=== PATIENT | female | born 1990 | race African-American/Black ===

== ENCOUNTER 2022-12-26 05:55 | Emergency (ER) | payer OTHER ==
[~2022-12-26] VITALS: Ht 167.6 cm; Wt 95.8 kg
[2022-12-26 08:09] LABS: APPEARANCE, URINE CLEAR (CLEAR); BACTERIA, URINE AUTO 1+ (NEGATIVE); BILIRUBIN, URINE AUTO NEGATIVE (NEGATIVE); BLOOD, URINE BLOOD 3+ (NEGATIVE); COLOR, URINE YELLOW (YELLOW); GLUCOSE, URINE (UA) AUTO NEGATIVE (NEGATIVE); KETONE, URINE AUTO NEGATIVE (NEGATIVE); LEUKOCYTE ESTERASE, URINE AUTO NEGATIVE (NEGATIVE); NITRITE, URINE AUTO NEGATIVE (NEGATIVE); PROTEIN, URINE AUTO NEGATIVE (NEGATIVE); RBC, URINE AUTO 2 /HPF (0-3); SPECIFIC GRAVITY URINE AUTO 1.008 (1.002-1.035); SQUAMOUS EPITHELIAL CELL UR AU 2 /HPF (0-6); UROBILINOGEN, URINE AUTO 0.2 mg/dL (0.0-2.0); WBC, URINE AUTO 0 /HPF (0-3)
[2022-12-26 08:13] LABS: BASO # 0.1 10^3/uL (0.0-0.2); BASO % 0.5 % (0.0-1.0); EOS # 0.2 10^3/uL (0.0-0.5); EOS % 2.1 % (0.0-3.0); HEMATOCRIT 33.5 % (36.0-47.0); HEMOGLOBIN 10.7 g/dl (12.0-15.5); LYMPH # 1.9 10^3/uL (1.5-5.0); LYMPH % 18.4 % (24.0-44.0); MEAN CORPUSCULAR HEMOGLOBIN 28.3 pg (27.0-33.0); MEAN CORPUSCULAR HGB CONC 31.9 g/dl (32.0-36.5); MEAN CORPUSCULAR VOLUME 88.6 fl (80.0-96.0); MONO # 0.8 10^3/uL (0.0-0.8); MONO % 8.2 % (2.0-8.0); NEUTROPHILS # 7.1 10^3/uL (1.5-8.5); NEUTROPHILS % 69.7 % (36.0-66.0); PLATELET COUNT, AUTOMATED 325 10^3/uL (150-450); RED BLOOD COUNT 3.78 10^6/uL (4.00-5.40); WHITE BLOOD COUNT 10.2 10^3/uL (4.0-10.0)
[2022-12-26 08:32] LABS: BLOOD UREA NITROGEN 8 MG/DL (9-23); CALCIUM LEVEL 9.4 MG/DL (8.5-10.1); CARBON DIOXIDE LEVEL 26 MMOL/L (20-31); CHLORIDE LEVEL 102 MMOL/L (98-107); CREATININE FOR GFR 0.84 MG/DL (0.55-1.30); GLOMERULAR FILTRATION RATE > 60.0 (>60); GLUCOSE, FASTING 97 MG/DL (60-100); POTASSIUM SERUM 4.7 MMOL/L (3.5-5.1); SODIUM LEVEL 136 MMOL/L (136-145)
[2022-12-26 08:46] LABS: HCG, SERUM QUANTITATIVE 88294.5 MIU/ML (<4.2)
[2022-12-26] MEDS ORDERED: PREN1TAB11 PO (10:01)
[2022-12-26] MEDS ORDERED: ONDA4TAB6 PO (10:01)
[2022-12-26] MEDS ORDERED: NS 1,000 ML IV ONE (10:35)
[2022-12-26 12:18] VITALS: BP 127/65; TEMP 98.8; O2SAT 100
== END 2022-12-26 12:26 | disposition home or self-care (01) ==
LOC: M ED 05:55
DX: O20.8 Other hemorrhage in early pregnancy (principal); O34.81 Maternal care for other abnormalities of pelvic organs, first trimester; Z3A.11 11 weeks gestation of pregnancy

== ENCOUNTER → 2023-01-10 | Outpatient (CLI) | payer OTHER ==
[~2023-01-10] MED LIST: ONDA4TAB6 PO; PREN1TAB11 PO
== END ==
LOC: M RAD 09:50
PROVIDERS: ATTEND Obstetrics & Gynecology
DX: O09.211 Supervision of pregnancy with history of pre-term labor, first trimester (principal); Z3A.12 12 weeks gestation of pregnancy; R10.9 Unspecified abdominal pain

== ENCOUNTER 2023-01-25 07:19 | Day surgery (SDC) | payer OTHER ==
[~2023-01-25] VITALS: Ht 167.6 cm; Wt 98.8 kg
[~2023-01-25 07:19] MED LIST changes: +ACETAMINOPHEN *IV* 1,000 MG in IV 1 EA IV ONE; +ASPI-226 PO; +FERR325T81 PO; +FOLI400T13 PO; +PNV,1TAB3 PO; +PROG1CAP9 PO; +VITA100093 PO; +ceFAZolin SOD 2 GM in IV 1 EA IV ONE
[2023-01-25] MEDS ORDERED: LR 1,000 ML IV SCH ×2 (07:45→09:10)
[2023-01-25 07:52] LABS: HEMATOCRIT 29.2 % (36.0-47.0); HEMOGLOBIN 9.6 g/dl (12.0-15.5); MEAN CORPUSCULAR HEMOGLOBIN 28.8 pg (27.0-33.0); MEAN CORPUSCULAR HGB CONC 32.9 g/dl (32.0-36.5); MEAN CORPUSCULAR VOLUME 87.7 fl (80.0-96.0); PLATELET COUNT, AUTOMATED 269 10^3/uL (150-450); RED BLOOD COUNT 3.33 10^6/uL (4.00-5.40); WHITE BLOOD COUNT 10.3 10^3/uL (4.0-10.0)
[2023-01-25 08:17] LABS: ALBUMIN 2.9 G/DL (3.2-5.2); ALKALINE PHOSPHATASE 83 U/L (46-116); ALT/SGPT 10 U/L (7.0-40); AST/SGOT 8 U/L (<34); BILIRUBIN,TOTAL 0.3 MG/DL (0.3-1.2); BLOOD UREA NITROGEN 9 MG/DL (9-23); CALCIUM LEVEL 8.8 MG/DL (8.5-10.1); CARBON DIOXIDE LEVEL 25 MMOL/L (20-31); CHLORIDE LEVEL 106 MMOL/L (98-107); CREATININE FOR GFR 0.85 MG/DL (0.55-1.30); GLOMERULAR FILTRATION RATE > 60.0 (>60); GLUCOSE, FASTING 88 MG/DL (60-100); POTASSIUM SERUM 3.9 MMOL/L (3.5-5.1); SODIUM LEVEL 137 MMOL/L (136-145); TOTAL PROTEIN 6.3 G/DL (5.7-8.2)
[2023-01-25] MEDS ORDERED: ONDANSETRON 4MG 2ML VIAL As Ordered ONE (08:34)
[2023-01-25] MEDS ORDERED: ACETAMINOPHEN 1000MG 100ML IV BAG As Ordered ONE (08:34)
[2023-01-25] MEDS ORDERED: fentaNYL 100 MCG/2 ML INJECTION IV PRN (09:10)
[2023-01-25] MEDS ORDERED: ONDANSETRON 4MG 2ML VIAL IV PRN (09:10)
[2023-01-25] MEDS ORDERED: oxyCODONE 5MG TAB PO PRN (09:10)
[2023-01-25 10:03] VITALS: BP 132/76; TEMP 98.2; O2SAT 100
== END 2023-01-25 09:57 | disposition home or self-care (01) ==
LOC: M SDC 07:19
PROVIDERS: ATTEND Obstetrics & Gynecology
DX: O34.32 Maternal care for cervical incompetence, second trimester (principal); Z3A.21 21 weeks gestation of pregnancy
CPT/HCPCS: 36415; 59320; 80053; 85027; 86850; 86900; 86901; J0131; J0690; J2405

== ENCOUNTER → 2023-03-22 | Outpatient (CLI) | payer OTHER ==
[~2023-03-22] MED LIST changes: -ACETAMINOPHEN *IV* 1,000 MG in IV 1 EA IV ONE; -ceFAZolin SOD 2 GM in IV 1 EA IV ONE
== END ==
LOC: M WHC 11:32
PROVIDERS: ATTEND Obstetrics & Gynecology
DX: O34.12 Maternal care for benign tumor of corpus uteri, second trimester (principal); D25.9 Leiomyoma of uterus, unspecified; Z3A.23 23 weeks gestation of pregnancy; O34.32 Maternal care for cervical incompetence, second trimester; O09.292 Supervision of pregnancy with other poor reproductive or obstetric history, second trimester

== ENCOUNTER 2023-06-21 10:30 | Outpatient (CLI) | payer OTHER ==
[~2023-06-21] VITALS: Ht 167.6 cm; Wt 111.3 kg
[2023-06-21] MEDS ORDERED: PRENTAB9 PO (10:42)
[2023-06-21 10:49] VITALS: BP 136/66
[2023-06-21] MEDS ORDERED: HOME MED LIST COMPLETE! XX SCH (11:05)
[2023-06-21 13:07] VITALS: BP 116/61
[2023-06-21 13:50] VITALS: BP 115/56
== END 2023-06-21 14:10 | disposition home or self-care (01) ==
LOC: M LDO 10:30
PROVIDERS: ATTEND Advanced Practice Midwife
DX: O36.8330 Maternal care for abnormalities of the fetal heart rate or rhythm, third trimester, not applicable or unspecified (principal); Z3A.36 36 weeks gestation of pregnancy; O09.813 Supervision of pregnancy resulting from assisted reproductive technology, third trimester; Z79.82 Long term (current) use of aspirin; Z79.899 Other long term (current) drug therapy
CPT/HCPCS: 59025; 76815; 76819; 76820; G0463

== ENCOUNTER 2023-06-29 06:47 | Inpatient (IN) | payer OTHER ==
[~2023-06-29] VITALS: Ht 167.6 cm; Wt 111.9 kg
[2023-06-29] VITALS (36 sets, daily range): BP systolic 95–150; BP diastolic 51–84; O2SAT 98
[~2023-06-29 06:47] MED LIST changes: +PRENTAB9 PO
[2023-06-29] MEDS ORDERED: TUMS500C PO (07:07)
[2023-06-29] MEDS ORDERED: TRANEXAMIC ACID INJection 1,000 MG in NS 100 ML IV PRN (08:00)
[2023-06-29] MEDS ORDERED: METHYLERGONOVINE MALEATE 0.2MG/ML 1ML VIAL IM PRN (08:00)
[2023-06-29] MEDS ORDERED: OXYTOCIN INJ 10UNITS/ML 1ML VIAL IM PRN (08:00)
[2023-06-29] MEDS ORDERED: CARBOPROST TROMETHAMINE 250 MCG/ML AMP IM PRN (08:00)
[2023-06-29] MEDS ORDERED: LIDOCAINE 1% MDV 20ML VIAL INFIL PRN (08:00)
[2023-06-29] MEDS ORDERED: OXYTOCIN DRIP 30 UNITS in IV 1 EA IV PRN ×3 (08:00)
[2023-06-29] MEDS: LACTATED RINGER'S 1000 ML IV STA (08:07)
[2023-06-29] MEDS: AMPICILLIN SOD 2 GM in D5W MINI-BAG PLUS 100 ML IV ONE (08:28)
[2023-06-29 08:35] LABS: HEMATOCRIT 29.3 % (36.0-47.0); HEMOGLOBIN 9.4 g/dl (12.0-15.5); MEAN CORPUSCULAR HEMOGLOBIN 28.4 pg (27.0-33.0); MEAN CORPUSCULAR HGB CONC 32.1 g/dl (32.0-36.5); MEAN CORPUSCULAR VOLUME 88.5 fl (80.0-96.0); PLATELET COUNT, AUTOMATED 272 10^3/uL (150-450); RED BLOOD COUNT 3.31 10^6/uL (4.00-5.40); WHITE BLOOD COUNT 8.2 10^3/uL (4.0-10.0)
[2023-06-29] MEDS ORDERED: LR 1,000 ML IV SCH (09:05)
[2023-06-29] MEDS: OXYTOCIN DRIP 30 UNITS in IV 1 EA IV SCH ×2 (10:20→22:10)
[2023-06-29] MEDS: AMPICILLIN SOD 1 GM in D5W MINI-BAG PLUS 100 ML IV SCH (12:35)
[2023-06-29] MEDS: LR 1,000 ML IV SCH ×2 (14:39→22:12)
[2023-06-29] MEDS ORDERED: ePHEDrine SULFATE 25 MG/5 ML(5MG/ML) SYRINGE IVP PRN (15:10)
[2023-06-29] MEDS ORDERED: ONDANSETRON 4MG 2ML VIAL IV PRN (15:10)
[2023-06-29] MEDS ORDERED: NALOXONE INJ 0.4MG/1ML VIAL IV PRN (15:10)
[2023-06-29] MEDS ORDERED: diphenhydrAMINE 50MG/ML VIAL IV PRN (15:10)
[2023-06-29] MEDS ORDERED: LR 500 ML IV PRN (15:10)
[2023-06-29] MEDS ORDERED: EPIDURAL/PCA KEYS XX PRN (15:10)
[2023-06-29] MEDS: FENTANYL/ROPIVACAINE/NACL BAG 100 ML EPIDURAL SCH (15:36)
[2023-06-29] MEDS: ONDANSETRON 4MG 2ML VIAL IV ONE (16:17)
[2023-06-29] MEDS: diphenhydrAMINE 50MG/ML VIAL IV ONE (18:37)
[2023-06-29] MEDS: D5W/LR 500 ML IV ONE (19:00)
[2023-06-29] MEDS ORDERED: OXYTOCIN DRIP 30 UNITS in IV 1 EA IV SCH (22:10)
[2023-06-29] MEDS ORDERED: MOM 30ML SUSPENSION UDC PO PRN (22:10)
[2023-06-29] MEDS ORDERED: IBUPROFEN 800 MG TAB PO PRN (22:10)
[2023-06-29] MEDS ORDERED: DIBUCAINE 1% OINTMENT 30GM TOP PRN (22:10)
[2023-06-29] MEDS ORDERED: METHYLERGONOVINE MALEATE 0.2 MG TAB PO PRN (22:10)
[2023-06-29] MEDS ORDERED: IBUPROFEN 600MG TAB PO PRN (22:10)
[2023-06-29] MEDS ORDERED: ACETAMINOPHEN TAB 650MG DOSE (2X325MG) PO PRN (22:10)
[2023-06-29] MEDS ORDERED: ACETAMINOPHEN 500 MG TAB PO PRN (22:10)
[2023-06-29] MEDS ORDERED: RHOGAM 300MCG (1500IU) INJ IM SCH (22:10)
[2023-06-29] MEDS ORDERED: DOCUSATE SODIUM 100MG CAPSULE PO PRN (22:10)
[2023-06-29] MEDS ORDERED: METOCLOPRAMIDE INJ 10MG/2ML VIAL IV PRN (22:10)
[2023-06-29 22:17] LABS: CORD GAS ABE A -5.6; CORD GAS ABE V 0.4; CORD GAS HCO3 A 22.7 MMOL/L; CORD GAS HCO3 V 25.5 MMOL/L; CORD GAS O2 SAT A 59.4 %; CORD GAS O2 SAT V 89.8 %; CORD GAS PCO2 A 55.2 mmHg; CORD GAS PCO2 V 42.8 mmHg; CORD GAS PH A 7.231 UNITS; CORD GAS PH V 7.393 UNITS; CORD GAS PO2 A 31.6 mmHg; CORD GAS PO2 V 43.1 mmHg; CORD GAS SBC V 24.6 MMOL/L; CORD GAS TCO2 A 24.3 MMOL/L; CORD GAS TCO2 V 26.8 MMOL/L
[2023-06-30 06:20] VITALS: BP 125/63; O2SAT 98
[2023-06-30 07:30] LABS: HEMATOCRIT 26.1 % (36.0-47.0); HEMOGLOBIN 8.5 g/dl (12.0-15.5); MEAN CORPUSCULAR HEMOGLOBIN 28.8 pg (27.0-33.0); MEAN CORPUSCULAR HGB CONC 32.6 g/dl (32.0-36.5); MEAN CORPUSCULAR VOLUME 88.5 fl (80.0-96.0); PLATELET COUNT, AUTOMATED 263 10^3/uL (150-450); RED BLOOD COUNT 2.95 10^6/uL (4.00-5.40); WHITE BLOOD COUNT 12.6 10^3/uL (4.0-10.0)
[2023-06-30 07:58] LABS: LDH LACTATE DEHYDROGENASE 233 U/L (120-246)
[2023-06-30 07:59] LABS: ALT/SGPT 10 U/L (7.0-40); AST/SGOT 20 U/L (<34); BILIRUBIN,TOTAL 0.7 MG/DL (0.3-1.2); CREATININE FOR GFR 0.77 MG/DL (0.55-1.30); GLOMERULAR FILTRATION RATE > 60.0 (>60)
[2023-06-30] MEDS ORDERED: PRENATAL VITAMINS CHEWABLE TABLET PO SCH (09:00)
[2023-06-30] MEDS: PRENATAL VITAMINS CHEWABLE TABLET PO SCH (09:00)
[2023-06-30 18:00] VITALS: BP 139/73; O2SAT 99
[2023-07-01 06:00] VITALS: BP 112/61; O2SAT 97
[2023-07-01] MEDS: MEASLES,MUMPS,RUBELLA VACCINE INJ (MMR-II) SC.IMMUN ONE (09:08)
[2023-07-01] MEDS ORDERED: ACET1TAB55 PO (11:12)
[2023-07-01] MEDS ORDERED: IBUP-1022 PO (11:12)
[2023-07-01] MEDS ORDERED: COLA100C5 PO (11:12)
== END 2023-07-01 16:25 | disposition home or self-care (01) | DRG 807 ==
LOC: M LDO 06:47 → M LDI 08:07 → M OBS 23:42
PROVIDERS: ADMIT Obstetrics & Gynecology; ATTEND Obstetrics & Gynecology
PROC: 10E0XZZ Delivery of Products of Conception, External Approach (ICD-10-PCS; principal; 2023-06-29)
PROC: 10907ZC Drainage of Amniotic Fluid, Therapeutic from Products of Conception, Via Natural or Artificial Opening (ICD-10-PCS; 2023-06-29)
PROC: 0HQ9XZZ Repair Perineum Skin, External Approach (ICD-10-PCS; 2023-06-29)
DX: O70.0 First degree perineal laceration during delivery (principal); Z37.0 Single live birth; Z3A.37 37 weeks gestation of pregnancy; O99.824 Streptococcus B carrier state complicating childbirth